=== PATIENT | male | born 1960 | race Caucasian/White ===

== ENCOUNTER 2017-11-01 14:37 | Inpatient (IN) | payer OTHER ==
[~2017-11-01] VITALS: Ht 185.4 cm; Wt 90.6 kg
[~2017-11-01 14:37] MED LIST: CHANTIX0.5 MG PO; PAXIL10 MG PO; PREVACID30 MG PO
[2017-11-01 16:22] LABS: HEMATOCRIT 50.5 % (38.0-50.0); HEMOGLOBIN 16.6 G/DL (12.5-16.6); MCH 28.2 PG (29.0-34.0); MCHC 32.9 G/DL (30.0-36.0); MCV 85.9 FL (86-99); PLATELET COUNT 156 K/uL (156-360); RBC DIS.WIDTH-CV 13.8 % (11.8-14.6); RBC DIS.WIDTH-SD 43.8 % (39-53); RED BLOOD COUNT 5.88 M/uL (4.00-5.50); WHITE BLOOD COUNT 7.9 K/uL (4.1-10.2)
[2017-11-01 16:31] LABS: ALBUMIN 3.9 g/dL (3.2-4.8)
[2017-11-01 16:32] LABS: CHLORIDE 109 mEq/L (99-109); POTASSIUM 3.8 mEq/L (3.7-5.4); SODIUM 139 mEq/L (136-147)
[2017-11-01 16:34] LABS: GLUCOSE 63 mg/dL (70-99); TOTAL PROTEIN 6.7 g/dL (6.4-8.3)
[2017-11-01 16:36] LABS: TOTAL BILIRUBIN 0.6 mg/dL (0.0-1.0)
[2017-11-01 16:37] LABS: ALKALINE PHOSPHATASE 73 IU/L (3-129)
[2017-11-01 16:38] LABS: CREATININE 1.5 mg/dL (0.6-1.3); GFR ESTIMATE (CALCULATED) 52 mL/min/ (58.99-99999)
[2017-11-01 16:39] LABS: AST (GOT) 17 IU/L (2-34); UREA NITROGEN (BUN) 9 mg/dL (9-23)
[2017-11-01 16:40] LABS: ALT (GPT) 15 IU/L (3-49)
[2017-11-01] MEDS ORDERED: TOPAMAX100 MG PO (18:44)
[2017-11-01] MEDS ORDERED: CATAPRES0.2 MG PO (18:44)
[2017-11-01] MEDS ORDERED: LUNESTA3 MG PO (18:44)
[2017-11-01] MEDS ORDERED: ATORVASTATIN CA40 MG PO (18:44)
[2017-11-01 21:51] VITALS: BP 159/96
[2017-11-01 22:51] VITALS: BP 159/96
[2017-11-02 03:56] VITALS: BP 120/78
[2017-11-02 06:01] LABS: HEMATOCRIT 44.4 % (38.0-50.0); HEMOGLOBIN 14.7 G/DL (12.5-16.6); MCH 28.5 PG (29.0-34.0); MCHC 33.1 G/DL (30.0-36.0); MCV 86.2 FL (86-99); PLATELET COUNT 169 K/uL (156-360); RBC DIS.WIDTH-CV 13.8 % (11.8-14.6); RBC DIS.WIDTH-SD 43.8 % (39-53); RED BLOOD COUNT 5.15 M/uL (4.00-5.50); WHITE BLOOD COUNT 4.6 K/uL (4.1-10.2)
[2017-11-02 06:30] LABS: CHLORIDE 108 MEQ/L (99-109); CREATININE 1.2 MG/DL (0.6-1.3); GFR ESTIMATE (CALCULATED) > 59 mL/min/ (58.99-99999); GLUCOSE 150 mg/dL (70-99); POTASSIUM 4.1 MEQ/L (3.7-5.4); SODIUM 137 MEQ/L (136-147); UREA NITROGEN (BUN) 12 mg/dL (9-23)
[2017-11-02 06:31] LABS: BILIRUBIN NEGATIVE; BLOOD NEGATIVE; COLOR YELLOW ((YELLOW)); GLUCOSE (STRIP) NEGATIVE; KETONES NEGATIVE; LEUKOCYTES NEGATIVE; NITRITE NEGATIVE; PROTEIN (STRIP) NEGATIVE; SPECIFIC GRAVITY 1.033 (1.000-1.030)
[2017-11-02 06:35] LABS: APPEARANCE CLEAR ((CLEAR))
[2017-11-02 07:39] VITALS: BP 142/88
[2017-11-02 11:58] VITALS: BP 159/96
[2017-11-02 15:33] VITALS: BP 162/97
[2017-11-02 19:27] VITALS: BP 160/91
[2017-11-02 23:27] VITALS: BP 153/107
[2017-11-03 01:03] VITALS: BP 138/83
[2017-11-03 05:41] VITALS: BP 142/94
[2017-11-03 06:48] LABS: CHLORIDE 105 MEQ/L (99-109); CREATININE 1.2 MG/DL (0.6-1.3); GFR ESTIMATE (CALCULATED) > 59 mL/min/ (58.99-99999); POTASSIUM 3.8 MEQ/L (3.7-5.4); SODIUM 136 MEQ/L (136-147); UREA NITROGEN (BUN) 12 mg/dL (9-23)
[2017-11-03 06:53] LABS: GLUCOSE 94 mg/dL (70-99)
[2017-11-03 07:36] LABS: ABS NEUTROPHIL COUNT 4.5; ATYPICAL LYMPHOCYTE 5.3 %; BASOPHILS 0.9 %; EOSINOPHIL ABS CT 0.2; EOSINOPHILS 2.6 % (0-5.0); HEMATOCRIT 44.4 % (38.0-50.0); HEMOGLOBIN 14.5 G/DL (12.5-16.6); LYMPHOCYTES 28.9 % (15.0-45.0); MCH 27.8 PG (29.0-34.0); MCHC 32.7 G/DL (30.0-36.0); MCV 85.2 FL (86-99); PLAT.SUFFICIENCY DECREASED; PLATELET CLUMPS PRESENT - PLATELET COUNTS APPEARS DECREASED; RBC DIS.WIDTH-CV 13.6 % (11.8-14.6); RBC DIS.WIDTH-SD 42.5 % (39-53); RED BLOOD COUNT 5.21 M/uL (4.00-5.50); SEG.NEUTROPHILS 55.3 % (46.0-76.0); SMUDGE CELLS 13.2; WHITE BLOOD COUNT 8.1 K/uL (4.1-10.2)
[2017-11-03 07:43] LABS: PLATELET COUNT UNABLE TO REPORT K/uL (156-360)
[2017-11-03 07:44] VITALS: BP 143/97
[2017-11-03 14:53] VITALS: BP 125/71
[2017-11-03 23:04] VITALS: BP 109/64
[2017-11-04 07:52] VITALS: BP 125/83
[2017-11-04] MEDS ORDERED: VALTREX1000 MG PO (14:48)
[2017-11-04] MEDS ORDERED: KEFLEX500 MG PO (14:49)
[2017-11-04 15:14] VITALS: BP 135/84
== END 2017-11-04 16:04 | disposition home or self-care (01) | DRG 125 ==
LOC: EME 14:37 → EDOF 19:48 → 3EAST 19:48 → ENRESERV 19:51 → 3EAST 21:09
PROVIDERS: Hospitalist; Physician Assistant
DX: B02.30 Zoster ocular disease, unspecified (principal); L03.211 Cellulitis of face; L03.213 Periorbital cellulitis; E78.5 Hyperlipidemia, unspecified; I10 Essential (primary) hypertension; F41.9 Anxiety disorder, unspecified; F17.200 Nicotine dependence, unspecified, uncomplicated; R63.4 Abnormal weight loss; E78.00 Pure hypercholesterolemia, unspecified; F31.9 Bipolar disorder, unspecified; K11.20 Sialoadenitis, unspecified
CPT/HCPCS: 70487; 80048; 80053; 81003; 83605; 85025; 85027; 87040; 99281; 99285; J0133; J0295; J0690; J1644; J1885; J2270; J2405; J2930; J7030; J7050; S0028